=== PATIENT | male | born 1960 | race Caucasian/White ===

== ENCOUNTER 2016-10-30 12:02 | Emergency (ER) | payer OTHER ==
[~2016-10-30] VITALS: Ht 175.3 cm; Wt 90.7 kg
--- NOTE | ~2016-10-30 | CT71 ---
[facility] A Service of [facility] & [facility] RADIOLOGY TEXT RESULTS PATIENT: AMRITA MCCLOUD LOCATION: [facility] : 62 UNIT #: [id number] AGE: [address]: Brian Mijares MD SEX: M ORDER DR: [id number] [facility] [address] [place], [place] [address] [id number] E MR#: [id number] #: [id number] NAME: AMRITA MCCLOUD : 1960 SEX: M STUDY DATE/TIME: 10/30/2016 17:05 UNIT: [facility] ROOM: STUDY DESCRIPTION: CT Head Wo Contrast Attending Physician: Brian Mijares Ordering Physician: Ed Doctor [id number] [facility] Primary Care Physician: Primary Care Physician No MEDICAL IMAGING REPORT This report is preliminary unless electronic signature is present EXAM Head [place] without [id number] HISTORY Confusion and disorientation. Loss of appetite for a week. TECHNIQUE Routine noncontrast head CT is reviewed. This CT exam was performed with one or more of the following radiation dose reduction techniques: automatic exposure control, adjustment of mA and/or kV according to patient size, and iterative reconstruction. COMPARISON STUDIES There is no previous. FINDINGS There is no displaced calvarial fracture. The visualized mastoid air cells are clear. The visualized paranasal sinuses show only mild mucosal thickening. There is a large mass lesion in the medial left frontal lobe, partially necrotic, partially solid. The solid portion is at least 4.9 x 3.3 cm dimension. The overall mass, including the necrosis, is probably about 5 x 3.8 cm and there is adjacent vasogenic edema in the left frontal lobe. This results in mass effect on the left frontal horn subfalcine herniation [id number] and to a lesser extent, some mass effect on the right frontal horn. Septum pellucidum is displaced about 1.1 cm to the right anteriorly associated with the subfalcine herniation. The main considerations would be a primary brain neoplasm, such as a high-grade glioma versus a solitary metastasis. Patient best further assessed with MRI of the brain without contrast at this time. The basilar cisterns are [facility] A Service of [facility] & [facility] RADIOLOGY TEXT RESULTS PATIENT: AMRITA MCCLOUD LOCATION: [facility] : 62 UNIT #: [id number] AGE: [address]: Brian Mijares MD SEX: M ORDER DR: still patent. No acute intracranial hemorrhage is appreciated. IMPRESSION 1. Abnormal examination with a large, partially solid, partially necrotic mass lesion centered at the left frontal lobe anteromedially. Overall measurements are at least 5 x 3.8 cm dimension and associated vasogenic edema. There is mass effect upon zeep-xkniuly-svut-right right frontal horns with about 1.1 cm ulcj-xg-bycja subfalcine herniation. Main considerations are a high-grade glioma versus solitary metastasis and correlation with a MRI with and without contrast is recommended at this time if the patient is a candidate. STAT * RESULT Dictated by... Estee Enciso M.D. THIS IS AN ELECTRONICALLY VERIFIED REPORT Estee Enciso M.D. at 10/31/2016 10:21 AM DELORES/casper TD: 10/30/2016 17:44 JOB #: [id number] MEDICAL IMAGING REPORT Page 1 of 1 COPY
--- NOTE | ~2016-10-30 | EKG ---
PATIENT: AMRITA MCCLOUD UNIT #: [id number] Ventricular Rate: 45 BPM Atrial Rate: 45 BPM P-R Interval: 110 ms QRS Duration: 82 ms Q-T Interval: 454 ms QTC Calculation(Bezet): 392 ms P [place]: 69 degrees Calculated R [place]: 34 degrees Calculated T [place]: 27 degrees Diagnosis Line: Sinus bradycardia with short MO Diagnosis Line: Otherwise normal ECG Diagnosis Line: No previous ECGs available Diagnosis Line: Confirmed by JAKUB WATTS MD ([id number]) on 10/30/2016 Diagnosis Line: 6:59:30 PM INTERPRETING MD: MAC DEL TORO
[2016-10-30 12:40] LABS: BASOPHIL% 0.5 % (0-2.5); EOSINOPHIL# 0.1 X10e3 (0-0.7); EOSINOPHIL% 1.2 % (0.0-7.0); HEMOGLOBIN 14.8 gm/dL (13.0-16.0); LYMPHOCYTE# 0.7 X10e3 (1.0-3.5); LYMPHOCYTE% 14.7 % (17.0-45.0); MEAN CELL VOLUME 86.3 FL (83-96); MEAN CORPUSCULAR HEMOGLOBIN 28.3 PG (28-34); MEAN CORPUSCULAR HGB CONC 32.8 g/dL (30-36); MEAN PLATELET VOLUME 8.8 FL (6.5-11.5); MONOCYTE# 0.2 X10e3 (0-1.0); MONOCYTE% 4.4 % (3.0-12.0); NEUTROPHIL% 79.2 % (40-75); PLATELET COUNT 159 X10e3 (140-420); RED BLOOD COUNT 5.21 X10e (3.90-5.60); RED CELL DISTRIBUTION WIDTH 13.4 % (11.0-15.5); WHITE BLOOD COUNT 5.1 X10e3 (4.0-10.5)
[2016-10-30 12:42] LABS: DIFF IND NO
[2016-10-30 13:07] LABS: PROTHROMBIN TIME (PATIENT) 11.1 SECONDS (10.0-11.7)
[2016-10-30 13:09] LABS: ALBUMIN SERUM 3.9 g/dL (3.5-5.0); BILIRUBIN, DIRECT 0.1 mg/dL (0.0-0.2); BILIRUBIN,INDIRECT 0.6 mg/dL (0.0-0.9); BILIRUBIN,TOTAL 0.7 mg/dL (0.2-2.0); CALCIUM SERUM 9.4 mg/dL (8.4-10.2); GLOM FILT RATE Estimated 84.4 mL/min (>60); POTASSIUM 4.3 mmol/L (3.5-5.1); PROTEIN TOTAL SERUM 6.7 g/dL (6.0-8.3)
[2016-10-30 16:40] LABS: URINE SOURCE CLEAN CATCH
[2016-10-30 16:50] LABS: URINE APPEARANCE CLEAR; URINE BILIRUBIN NEG (NEG); URINE BLOOD NEG (NEG); URINE COLOR DK YELLOW; URINE GLUCOSE NEG (NEG); URINE KETONE 2+ (NEG); URINE LEUKOCYTE ESTERASE NEG (NEG); URINE NITRATE NEG (NEG); URINE PROTEIN NEG (NEG); URINE SPECIFIC GRAVITY 1.031 (1.003-1.035)
[2016-10-30 16:52] LABS: CULTURE INDICATED? NO
[2016-10-30 16:59] LABS: AMPHETAMINE NEG (NEG); BARBITURATES NEG (NEG); BENZODIAZEPINES NEG (NEG); COCAINE NEG (NEG); MARIJUANA NEG (NEG); OPIATES NEG (NEG); TRICYCLIC ANTIDEPRESSANTS NEG (NEG); U METHADONE NEG (NEG)
== END 2016-10-30 19:21 | disposition hospice, home (50) ==
LOC: CED 12:02
PROVIDERS: Emergency Medicine
DX: G93.89 Other specified disorders of brain (principal); R41.82 Altered mental status, unspecified
CPT/HCPCS: 36415; 70450; 80048; 80076; 80307; 81003; 82947; 85025; 85610; 85730; 93005; 99285